=== PATIENT | male | born 1945 | race Caucasian/White ===

== ENCOUNTER 2017-08-19 10:17 | Day surgery (SDC) | payer OTHER, MEDICAID ==
[2017-08-19] MEDS ORDERED: NS 500 ML IV 500 ML IV ONE (10:30)
[2017-08-19] MEDS ORDERED: BETADINE OPHTH SOLN 5% EACHEYE ONE (13:30)
[2017-08-19] MEDS ORDERED: TETRACAINE 0.5% OPHTH 1 DOSE AFFEYE ONE (13:30)
[2017-08-19] MEDS ORDERED: MIOCHOL-E IO ONE (13:45)
[2017-08-19] MEDS ORDERED: BSS OPHTH (PLAIN) 500 ML with VANCOMYCIN HCL 500 MG VIAL 25 MG, ADRENALINE CHL INJ 1 MG IR ONE ×3 (13:45)
[2017-08-19] MEDS ORDERED: VIGAMOX 0.5% OPHTH 1 DOSE AFFEYE ONE (13:45)
[2017-08-19] MEDS ORDERED: DIAMOX PO ONE (14:04)
[2017-08-19] MEDS ORDERED: DIPRIVAN VIAL ONE (15:30)
[2017-08-19 17:26] VITALS: BP 150/76
== END 2017-08-19 14:20 | disposition home or self-care (01) | DRG 125 ==
LOC: SURG1 10:17
PROVIDERS: ATTEND Ophthalmology
PROC: 08QD3ZZ Repair Left Iris, Percutaneous Approach (ICD-10-PCS; principal; 2017-08-19 20:30)
DX: H21.82 Plateau iris syndrome (post-iridectomy) (postprocedural) (principal)
CPT/HCPCS: 99100; A4217; J0170; J3370; J3490